=== PATIENT | female | born 1965 | race Caucasian/White ===

== ENCOUNTER 2018-02-15 20:24 | Emergency (ER) | END 2018-02-15 22:22 | disposition home or self-care (01) ==

== ENCOUNTER 2018-09-23 15:54 | Emergency (ER) | payer OTHER ==
[~2018-09-23] VITALS: Ht 157.5 cm; Wt 102.0 kg
[~2018-09-23 15:54] MED LIST: ACET1TAB40 PO; IBUP800T48 PO
[2018-09-23 15:59] VITALS: Ht 157.5 cm; Wt 102.0 kg
--- NOTE | 2018-09-23 16:50 | ERD ---
ER Documentation Chief Complaint Chief Complaint right facial droop x 3 days HPI The patient is a 53-year-old female, presenting to the ER because of left facial droop that began 3 days ago, unable to close her right eye completely, complains of watery right eye, complains of drooling, denies dysarthria, dysphonia, dysphagia. She denies similar symptoms previously, denies any weakness, headache, chest pain, dyspnea, abdominal pain, vomiting. She does not smoke nor drink Past medical history: Diabetes mellitus, peripheral neuropathy, dyslipidemia Past surgical history: 2 , hysterectomy, cholecystectomy ROS All systems reviewed and are negative except as per history of present illness. Medications Home Meds Active Scripts Mineral Oil/Lanolin Oil (Lacri-Lube) 3.5 Gm Oint, 1 APPLIC OP QID for 7 Days, #1 EA Prov:NOHELIA BAER MD 09/23/18 valACYclovir Hcl* (Valtrex*) 500 Mg Tablet, 1000 MG PO TID for 7 Days, TAB Prov:NOHELIA BAER MD 09/23/18 Reported Medications Insulin Glargine,Hum.rec.anlog (Basaglar Kwikpen U-100) 100 Unit/1 Ml Insuln.pen, 130 UNIT SC QHS, EA 09/23/18 Gabapentin* (Gabapentin*) 300 Mg Capsule, 600 MG PO TID, #180 CAP 09/23/18 Insulin Lispro (Humalog) 100 Unit/1 Ml Cartridge, 0 SQ SLIDING SCALE, EA INJECT 2-12 UNITS WITH MEALS 09/23/18 Sitagliptin* (Januvia*) 50 Mg Tablet, 50 MG PO DAILY, #30 TAB 09/23/18 Calcium Carbonate/Vitamin D3 (OYSTER SHELL 500 MG + VIT D TB) 1 Each Tablet, 1 EACH PO DAILY, TAB 09/23/18 Atorvastatin* (Atorvastatin*) 40 Mg Tablet, 40 MG PO QHS, #30 TAB 09/23/18 Losartan Potassium* (Losartan Potassium*) 50 Mg Tablet, 50 MG PO DAILY, TAB 09/23/18 Diclofenac Sodium* (Voltaren* Gel) 1% -100 Gm Gel, 2 GM TOP QID, #1 TUB 09/23/18 Cholecalciferol* (Vitamin D3*) 1,000 Unit Tablet, 1000 UNIT PO DAILY, TAB 09/23/18 Glipizide* (Glipizide*) 5 Mg Tablet, 5 MG PO AC BREAKFAST DINNER, TAB 09/23/18 Naproxen* (Naproxen*) 550 Mg Tablet, 550 MG PO BID, TAB 09/23/18 Discontinued Scripts Ibuprofen* (Motrin*) 800 Mg Tab, 800 MG PO Q6H PRN for PAIN AND OR ELEVATED TEMP, #30 TAB Prov:SEAMUS TSAI F 02/15/18 Acetaminophen with Codeine (Acetaminophen-Cod #3 Tablet) 1 Each Tablet, 1 TAB PO Q6H PRN for SEVERE PAIN LEVEL 7-10, #7 TAB Prov:SEAMUS TSAI F 02/15/18 Allergies Allergies: Coded Allergies: No Known Drug Allergy (Verified Allergy, Mild, 09/23/18) PMhx/Soc History of Surgery: Yes (hysterectomy, gall bladder, , d + C) Anesthesia Reaction: No Hx Neurological Disorder: No Hx Respiratory Disorders: No Hx Cardiac Disorders: Yes (htn, stroke 10 years ago-no residual) Hx Psychiatric Problems: No Hx Miscellaneous Medical Probl: No Hx Alcohol Use: No Hx Substance Use: No Hx Tobacco Use: No Physical Exam Vitals Vital Signs Date Temp Pulse Resp B/P (MAP) Pulse Ox O2 O2 Flow FiO2 Time Delivery Rate 09/23/18 98.2 81 24 124/82 100 Room Air 20:43 (96) 09/23/18 80 24 124/82 100 Room Air 16:30 (96) 09/23/18 98.2 82 18 167/107 98 15:59 (127) Physical Exam Const: No acute distress. Head: Atraumatic. Eyes: Normal Conjunctiva. ENT: Normal External Ears, Nose and Mouth. Neck: Full range of motion. No meningismus. Resp: Clear to auscultation bilaterally. Cardio: Regular rate and rhythm. Abd: Soft, non distended, normal bowel sounds, non tender. Skin: No petechiae or rashes. Back: No midline or flank tenderness. Ext: No cyanosis, or edema. Neur: Awake and alert. No focal deficit. Right facial droop, unable to close her right eye completely Psych: Normal Mood and Affect. Results 24 hrs Laboratory Tests Test 09/23/18 17:25 Bedside Glucose 360 mg/dL [place] [id number] Radiology Main Line: [phone] DIAGNOSTIC IMAGING REPORT Patient: AUDELIA OSORIO : 1965 Age: 53 Sex: F MR #: [id number] DOS: 09/23/18 1712 Ordering MD: NOHELIA BAER MD Location: E/R Room/Bed: PROCEDURE: CT brain without contrast CLINICAL INDICATION: Headaches TECHNIQUE: A CT of the brain was performed utilizing axial sections from the skull base through the vertex without contrast. Sagittal and coronal images were also reformatted. DICOM images are available. One or more of the following dose reduction techniques were used: Automated exposure control, adjustment of the mA and/or kV according to patient size, use of iterative reconstruction technique. The exam CTDIvol = 36.21 mGy and DLP = 634.23 mGy-cm. COMPARISON: None available FINDINGS: No acute intracranial hemorrhage is identified. Adjacent to the right middle frontal lobe gyrus is an ovoid circumscribed partially calcified space occupying lesion measuring 1.6 x 1.1 cm having a broad-based relationship to the dura and most likely reflecting a meningioma (series 2 image 11) There is no mass effect or midline shift. No extra-axial fluid collection is seen. The ventricles and sulci are within normal limits for size and configuration. The density of the brain is within normal limits. Sotelo-white differentiation is preserved. The osseous structures are unremarkable. The mastoid air cells and visualized paranasal sinuses are clear. RPTAT:HJJR IMPRESSION: 1. Ovoid circumscribed and predominately calcified right anterior cranial fossa space occupying lesion measuring approximately 1.6 x 1.1 cm and with a broad- based relationship to the dura most likely reflects a meningioma without mass effect. Consider follow-up MRI without and with contrast. 2. There is no evidence of acute intracranial hemorrhage or acute infarct. Physician Miradna Date Time Electronically viewed and signed by Physician Miranda on 09/23/2018 19:55 JR/ CC: NOHELIA BAER MD [id number] MEDICAL MAKING DECISION: The patient is a 53-year-old female, presenting with acute Dan palsy, meningioma is stable for outpatient follow-up, The differential diagnoses considered include but are not limited to brain malignancy, CVA, TIA Departure Diagnosis: Primary Impression: Dan palsy Additional Impression: Meningioma Condition: Good Comments She was discharged with Valtrex, Lacri-Lube The patient's blood pressure was elevated (>120/80) but appears stable without evidence of hypertension emergency or urgency. The patient was counseled about the risks of hypertension and urged to pursue outpatient monitoring and therapy within a week with their primary care physician. I discussed the findings with the patient. I advised the patient to follow-up with the primary physician in about 2-3 days, sooner if needed and return if any concern, advised that she need brain MRI for further eval Disclaimer: Inadvertent spelling and grammatical errors are likely due to EHR/dictation software use and do not reflect on the overall quality of patient care. Also, please note that the electronic time recorded on this note does not necessarily reflect the actual time of the patient encounter. NOHELIA BAER MD September 23, 2018 16:50
[2018-09-23] MEDS ORDERED: GLIP5TAB13 PO (17:09)
[2018-09-23] MEDS ORDERED: NAPR-958 PO (17:09)
[2018-09-23] MEDS ORDERED: CHOL100062 PO (17:09)
[2018-09-23] MEDS ORDERED: ATOR40TA68 PO (17:10)
[2018-09-23] MEDS ORDERED: LOSA50TA14 PO (17:10)
[2018-09-23] MEDS ORDERED: DICL100G37 TOP (17:10)
[2018-09-23] MEDS ORDERED: CALC1TAB93 PO (17:11)
[2018-09-23] MEDS ORDERED: SITA50TA2 PO (17:12)
[2018-09-23] MEDS ORDERED: INSU100C SQ (17:13)
[2018-09-23] MEDS ORDERED: GABA300C16 PO (17:14)
[2018-09-23] MEDS ORDERED: INSU100I33 SC (17:15)
[2018-09-23] MEDS ORDERED: VALA500T4 PO (20:28)
[2018-09-23] MEDS ORDERED: LACR35O OP (20:29)
[2018-09-23 20:43] VITALS: BP 124/82; PULSE 81; RESP 24
== END 2018-09-23 20:48 | disposition home or self-care (01) ==
LOC: E/R 15:54
DX: G51.0 Bell's palsy (principal); D32.9 Benign neoplasm of meninges, unspecified; I10 Essential (primary) hypertension; R40.2142 Coma scale, eyes open, spontaneous, at arrival to emergency department; R40.2362 Coma scale, best motor response, obeys commands, at arrival to emergency department; R40.2252 Coma scale, best verbal response, oriented, at arrival to emergency department; Z79.4 Long term (current) use of insulin; Z86.73 Personal history of transient ischemic attack (TIA), and cerebral infarction without residual deficits
CPT/HCPCS: 70450; 82962; Z7502